=== PATIENT | male | born 1965 | race American Indian/Alaskan Native ===

== ENCOUNTER 2022-01-02 00:43 | Emergency (ER) | payer OTHER ==
[2022-01-02] MEDS ORDERED: SODIUM CHLORIDE 0.9% 1000 ML 1,000 ML IV ONE (00:53)
[2022-01-02] MEDS ORDERED: levETIRAcetam 1000 MG/NS 0.75% 1,000 MG/100 ML BAG IV ONE ×2 (00:53→05:45)
[2022-01-02 02:02] LABS: Basophils % (Auto) 0.8 % (0.0-1.8); Eosinophils # (Auto) 0.1 K/mm3 (0.0-0.4); Eosinophils % (Auto) 1.5 % (0.0-4.3); Hematocrit 37.9 % (35.5-45.6); Hemoglobin 12.3 gm/dl (11.8-15.2); Lymphocytes % (Auto) 16.4 % (13.4-35.0); Mean Corpuscular HGB Conc 33 % (32-34); Mean Corpuscular Volume 86 fl (84-94); Monocytes # (Auto) 0.2 K/mm3 (0.0-0.8); Platelet Count 358 K/mm3 (140-440); Red Blood Count 4.41 M/mm3 (3.65-5.03); Red Cell Distribution Width 17.5 % (13.2-15.2)
[2022-01-02 02:23] LABS: Alanine Aminotransferase 8 units/L (7-56); Albumin 4.4 g/dL (3.9-5); BUN/Creatinine Ratio 16; Blood Urea Nitrogen 16 mg/dL (9-20); Calcium 9.7 mg/dL (8.4-10.2); Hemolysis Index 9
[2022-01-02 02:24] LABS: Bilirubin,Direct < 0.2 mg/dL (0-0.2)
--- NOTE | 2022-01-02 05:06 | Emergency Department Report ---
ED Seizure HPI - General Chief Complaint: Seizure Stated Complaint: ALCOHOL WITHDRAWALS Time Seen by Provider: 01/02/22 00:52 Source: patient, EMS Mode of arrival: Stretcher Limitations: No Limitations - History of Present Illness Initial Comments: Pt lives [place] [facility] [place] [address], someone there called 911 due to pt having a sezure. EMS states upon arrival, [facility] Fire on scene, pt 2was post-ictal alert to person, during transport pt AAOx4. Pt has been non-compliant with all home meds, ETOH abuse. pt states he drinks approx 1/2 pint absolute vodka per day, "I have for years" pt states last binge has been for approx "12 days", unsure how long since last drink, "maybe 12-24 hours" prior to seizure. Pt did bite his tongue. EMS states this is a frequent occurence with patient, that he drinks and then goes a couple days without ETOH, seizes, transported to ED. MD Complaint: possible seizure -: Gradual, hour(s) Description of Episode: loss of consciousness, tonic-clonic movement Seizure History: other (etoh ) Place: other (usp ) Associated Symptoms: denies: denies other symptoms, chest pain, confusion Treatments Prior to Arrival: none - Related Data Allergies Allergy/AdvReac Type Severity Reaction Status Date / Time trazodone AdvReac Unknown Verified 01/02/22 02:10 ED Review of Systems ROS: Stated complaint: ALCOHOL WITHDRAWALS Other details as noted in HPI Constitutional: denies: chills, fever Eyes: denies: eye pain, eye discharge, vision change ENT: denies: ear pain, throat pain Respiratory: denies: cough, shortness of breath, wheezing Cardiovascular: denies: chest pain, palpitations Endocrine: no symptoms reported Gastrointestinal: denies: abdominal pain, nausea, diarrhea Genitourinary: denies: urgency, dysuria Musculoskeletal: denies: back pain, joint swelling, arthralgia Skin: denies: rash, lesions Neurological: denies: headache, weakness, paresthesias Psychiatric: denies: anxiety, depression Hematological/Lymphatic: denies: easy bleeding, easy bruising ED Past Medical Hx - Past Medical History Hx Hypertension: Yes Hx CVA: No Hx Heart Attack/AMI: No Hx Seizures: Yes Additional medical history: ETOH abuse - DTs/seizures - Surgical History Additional Surgical History: back surgery - Social History Smoking Status: Never Smoker Substance Use Type: Alcohol ED Physical Exam - General Limitations: No Limitations General appearance: alert, in no apparent distress - Head Head exam: Present: atraumatic, normocephalic - Eye Eye exam: Present: normal appearance - ENT ENT exam: Present: mucous membranes moist - Neck Neck exam: Present: normal inspection - Respiratory Respiratory exam: Present: normal lung sounds bilaterally. Absent: respiratory distress - Cardiovascular Cardiovascular Exam: Present: regular rate, normal rhythm. Absent: systolic murmur, diastolic murmur, rubs, gallop - GI/Abdominal GI/Abdominal exam: Present: soft, normal bowel sounds - Rectal Rectal exam: Present: deferred - Extremities Exam Extremities exam: Present: normal inspection - Back Exam Back exam: Present: normal inspection - Neurological Exam Neurological exam: Present: alert, oriented X3 - Psychiatric Psychiatric exam: Present: normal affect, normal mood - Skin Skin exam: Present: warm, dry, intact, normal color. Absent: rash ED Course Vital Signs 01/02/22 01/02/22 01/02/22 00:45 00:53 01:00 Temperature 98.2 F Pulse Rate 101 H 102 H Respiratory 16 18 15 Rate Blood Pressure 128/89 O2 Sat by Pulse 100 99 Oximetry 01/02/22 01/02/22 01/02/22 01:16 01:30 01:46 Temperature Pulse Rate 103 H 100 H 93 H Respiratory 15 16 15 Rate Blood Pressure 132/92 127/80 127/80 O2 Sat by Pulse Oximetry 01/02/22 02:00 Temperature Pulse Rate 90 Respiratory 14 Rate Blood Pressure 127/80 O2 Sat by Pulse Oximetry ED Medical Decision Making - Lab Data Result diagrams: 01/02/22 01:20 01/02/22 01:20 - Radiology Data Radiology results: pending, report reviewed, image reviewed - Medical Decision Making work up negative , keppra loaded fluids given no ketosis no gap, vss no dostress Critical care attestation.: If time is entered above; I have spent that time in minutes in the direct care of this critically ill patient, excluding procedure time. ED Disposition Clinical Impression: Seizure, Alcohol withdrawal seizure Disposition: 01 HOME / SELF CARE / HOMELESS Is pt being admited?: No Does the pt Need Aspirin: No Condition: Stable Instructions: Alcohol Withdrawal Syndrome Referrals: PRIMARY CARE, [Primary Care Provider] - 3-5 Days
[2022-01-02 09:58] VITALS: BP 118/65
--- NOTE | 2022-01-02 16:59 | XRay Report ---
CHEST 1 VIEW 01/02/2022 3:49 PM INDICATION / CLINICAL INFORMATION: Dyspnea. COMPARISON: None available. FINDINGS: SUPPORT DEVICES: None. HEART / MEDIASTINUM: Heart is upper normal size for AP portable technique. Thoracic aorta is mildly e ctatic and tortuous. LUNGS / PLEURA: No significant pulmonary or pleural abnormality. No pneumothorax. ADDITIONAL FINDINGS: Multiple healed left-sided rib fractures and left clavicle fracture. No acute sk eletal abnormality. IMPRESSION: 1. No acute pulmonary or pleural findings. Signer Name: Kaela Francisco MD Signed: 01/02/2022 4:55 PM Workstation Name: [id number]
--- NOTE | 2022-01-02 18:04 | Electrocardiograph Report ---
[facility] Test Date: 2022-01-02 Test Time: 01:02:41 Pat Name: CLEMENTINA ANN Department: Room: Gender: M Direct Service Provider: KEN : 1965 Requested By: CLINT WALLER Order Number: [id number] Reading MD: Samia Gr Measurements Intervals [place] Rate: 100 P: 47 PA: 162 QRS: -2 QRSD: 91 T: -4 QT: 365 QTc: 473 Interpretive Statements Sinus tachycardia Probable left atrial enlargement No previous ECG available for comparison Electronically Signed On 01-02-2022 18:03:41 EDT by Samia Gr
== END 2022-01-02 09:59 | disposition home or self-care (01) ==
LOC: ED 00:43
DX: R56.9 Unspecified convulsions (principal); F10.239 Alcohol dependence with withdrawal, unspecified; Y90.9 Presence of alcohol in blood, level not specified; Z88.8 Allergy status to other drugs, medicaments and biological substances; Z79.899 Other long term (current) drug therapy
CPT/HCPCS: 36415; 71045; 80053; 80076; 82550; 82962; 83690; 85025; 93005; 96361; 96374; 99285; J1953; 80320; G0480

== ENCOUNTER 2022-02-28 20:55 | Emergency (ER) | payer OTHER ==
--- NOTE | 2022-02-28 21:15 | Emergency Department Report ---
ED General Adult HPI - General Stated complaint: CARDIAC ARREST PUI?: No Time Seen by Provider: 02/28/22 21:09 Source: EMS - History of Present Illness Initial comments: CALL CAME INTO THE HOSPITAL AT 20:40 FOR WITNESS ARREST AND 2 EPI GIVEN. EMS ARRIVED AROUND 2054; ON ARRIVAL, CPR IN PROGRESS AND PATIENT HAVE BEEN INTUBATED BY EMS AND CURRENTLY "BAGGING" PER EMS, PATIENT INITIALLY HAD SEIZURE ABOUT 40 (FORTY) MINUTES AGO AND SINCE THEN, CPR WAS STARTED. SINCE EMS GOT THERE AND TIL NOW, PATIENT HAVE RECEIVED TOTAL OF 2 EPI WITH NO OTHER MEDICATION AND NO SHOCK AND NO ROSC. 2056: EPI 2057: BICARB 2058: PULSE CHECK; NO ROSC; RESUME CPR 2099: EPI 2020: PULSE/RHYTHM CHECK; NO PULSE AND NO SHOCK ADVISED; TIME OF CALLED. - Related Data Previous Rx's Medication Instructions Recorded Last Taken Type levETIRAcetam [Keppra TAB] 500 mg PO BID #60 tablet 01/02/22 Unknown Rx Allergies Allergy/AdvReac Type Severity Reaction Status Date / Time trazodone AdvReac Unknown Verified 01/02/22 02:10 ED Review of Systems ROS: Stated complaint: CARDIAC ARREST Other details as noted in HPI Comment: Unobtainable due to pts medical conditions ED Past Medical Hx - Past Medical History Hx Hypertension: Yes Hx CVA: No Hx Heart Attack/AMI: No Hx Seizures: Yes Additional medical history: ETOH abuse - DTs/seizures - Surgical History Additional Surgical History: back surgery - Social History Smoking Status: Never Smoker Substance Use Type: Alcohol - Medications Home Medications: Home Medications Medication Instructions Recorded Confirmed Last Taken Type levETIRAcetam [Keppra TAB] 500 mg PO BID #60 tablet 01/02/22 Unknown Rx ED Physical Exam - General Limitations: Altered Mental Status - Eye Eye exam: Present: other (PUPILS DILATED) - ENT ENT exam: Present: other (INTUBATED) - Cardiovascular Cardiovascular Exam: Present: other (NO PULSE) Critical care attestation.: If time is entered above; I have spent that time in minutes in the direct care of this critically ill patient, excluding procedure time. ED Disposition Clinical Impression: Cardiopulmonary arrest Disposition: 20 Is pt being admited?: No Does the pt Need Aspirin: No Condition: Stable Time of Disposition: 21:01
[2022-02-28] MEDS ORDERED: DOPamine DRIP 800 MG/D5W 250ML PreMix IV ONE (23:45)
[2022-02-28] MEDS ORDERED: EPINEPHrine 1 MG/10 ML SYRINGE ONE (23:45)
[2022-02-28] MEDS ORDERED: SODIUM BICARB 8.4% 50 MEQ/50 ML SYRINGE IV ONE (23:45)
== END 2022-02-28 22:15 ==
LOC: ED 20:55
DX: I46.9 Cardiac arrest, cause unspecified (principal)
CPT/HCPCS: 92950; 99285; J0171; J1265